=== PATIENT | female | born 1995 | race Two or more races ===

== ENCOUNTER 2016-10-14 11:54 | Emergency (ER) | payer BC, OTHER ==
[~2016-10-14] VITALS: Ht 157.5 cm; Wt 47.6 kg
[2016-10-14 12:24] LABS: KETONES,URINE Negative (NEGATIVE); LEUKOCYTE ESTERASE ,URINE Negative (NEGATIVE); PH,URINE 5.5 (5.0-8.0)
[2016-10-14 12:26] LABS: ADD UA MICROSCOPIC YES
[2016-10-14 12:27] LABS: PREGNANCY TEST URINE QUAL NEGATIVE (NEGATIVE)
[2016-10-14 12:29] LABS: BASOPHILS # (AUTO) 0.1 /CMM (0.0-0.2); BASOPHILS % (AUTO) 0.8 % (0.0-2.0); DIFF TOTAL % 100 %; EOSINOPHILS % (AUTO) 0.4 % (0.0-6.0); HEMATOCRIT 37 % (33-45); HEMOGLOBIN 12.4 g/dL (11.5-14.8); LYMPHOCYTES # (AUTO) 1.5 /CMM (0.8-4.8); LYMPHOCYTES % (AUTO) 19.8 % (20.0-44.0); MEAN CORPUSCULAR HEMOGLOBIN 28 PG (26.0-33.0); MEAN CORPUSCULAR HGB CONC 33 g/dl (31.0-36.0); MEAN CORPUSCULAR VOLUME 85 fL (82-100); MONOCYTES # (AUTO) 0.4 /CMM (0.1-1.30); MONOCYTES % (AUTO) 5.2 % (2.0-12.0); NEUTROPHILS # (AUTO) 5.3 /CMM (1.8-8.9); NEUTROPHILS % (AUTO) 73.8 % (43.0-81.0); PLATELET COUNT (AUTO) 294 /CMM (150-450); RED BLOOD CELL COUNT(AUTO) 4.37 MIL/uL (4.0-5.2); WHITE BLOOD COUNT (AUTO) 7.3 K/uL (4.3-11.0)
[2016-10-14 12:49] LABS: CALCIUM, SERUM 8.8 mg/dL (8.5-10.1); CREATININE 0.7 mg/dL (0.6-1.3); POTASSIUM 3.7 mmol/L (3.5-5.1)
[2016-10-14 12:55] LABS: ADD URINE CULTURE NO; WBC,URINE 0-2 /HPF (0-3)
[2016-10-14 13:15] VITALS: BP 114/68
== END 2016-10-14 13:16 | disposition home or self-care (01) ==
LOC: ER 11:55
DX: N93.8 Other specified abnormal uterine and vaginal bleeding (principal)
CPT/HCPCS: 36415; 80048; 81001; 84702; 84703; 85025; 87491; 87591; 99284; A4606; Z7610; 81000-TC

== ENCOUNTER 2017-04-10 14:05 | Outpatient (CLI) | payer BC, OTHER ==
[2017-04-10 16:54] LABS: BASOPHILS % (AUTO) 0.4 % (0.0-2.0); EOSINOPHILS % (AUTO) 0.3 % (0.0-6.0); HEMATOCRIT 38 % (33-45); HEMOGLOBIN 12.3 g/dL (11.5-14.8); LYMPHOCYTES # (AUTO) 1.7 /CMM (0.8-4.8); LYMPHOCYTES % (AUTO) 23.5 % (20.0-44.0); MEAN CORPUSCULAR HEMOGLOBIN 27 PG (26.0-33.0); MEAN CORPUSCULAR HGB CONC 33 g/dl (31.0-36.0); MEAN CORPUSCULAR VOLUME 82 fL (82-100); MONOCYTES # (AUTO) 0.5 /CMM (0.1-1.30); MONOCYTES % (AUTO) 6.3 % (2.0-12.0); NEUTROPHILS # (AUTO) 5.1 /CMM (1.8-8.9); NEUTROPHILS % (AUTO) 69.5 % (43.0-81.0); PLATELET COUNT (AUTO) 265 /CMM (150-450); RDW COEFFICIENT OF VARIATION 16.3 (11.5-15.0); RED BLOOD CELL COUNT(AUTO) 4.61 MIL/uL (4.0-5.2); WHITE BLOOD COUNT (AUTO) 7.3 K/uL (4.3-11.0)
[2017-04-10 17:24] LABS: ALBUMIN 4.1 g/dL (3.4-5.0); BILIRUBIN,TOTAL 0.7 mg/dL (0.2-1.0); CALCIUM, SERUM 9.1 mg/dL (8.5-10.1); CREATININE 0.6 mg/dL (0.6-1.3); TOTAL PROTEIN, SERUM 7.8 g/dL (6.4-8.2)
[2017-04-10 23:38] LABS: T4 (THYROXINE) 8.2 ug/dL (4.7-13.3); THYROID STIMULATING HORMONE 0.763 uIU/mL (0.358-3.74)
== END 2017-04-10 23:59 | disposition home or self-care (01) ==
LOC: LAB 14:05
PROVIDERS: ATTEND Family Medicine
DX: Z12.4 Encounter for screening for malignant neoplasm of cervix (principal); Z11.3 Encounter for screening for infections with a predominantly sexual mode of transmission; N92.6 Irregular menstruation, unspecified
CPT/HCPCS: 80053-TC; 84146; 84436-TC; 84443-TC; 85025-TC; 86592; 86803; 87210-TC; 87491; 88142

== ENCOUNTER 2017-05-21 09:16 | Outpatient (CLI) | payer BC, OTHER ==
[2017-05-21] MEDS ORDERED: GADOVERSETAMIDE 5 MMOL/10 ML VIAL ONE (15:00)
== END 2017-05-21 23:59 | disposition home or self-care (01) ==
LOC: MRI 09:16
PROVIDERS: ATTEND Family Medicine
DX: I67.82 Cerebral ischemia (principal); R90.82 White matter disease, unspecified; R94.7 Abnormal results of other endocrine function studies
CPT/HCPCS: 70553; A9579

== ENCOUNTER 2017-06-06 10:51 | Outpatient (CLI) | payer BC, OTHER ==
[2017-06-06] MEDS ORDERED: GADOVERSETAMIDE 2.5 MMOL/5 ML VIAL IJ ONE (10:52)
== END 2017-06-06 23:59 | disposition home or self-care (01) ==
LOC: MRI 10:51
PROVIDERS: ATTEND Family Medicine
DX: R94.7 Abnormal results of other endocrine function studies (principal)
CPT/HCPCS: 70553; A9579

== ENCOUNTER 2018-04-27 22:32 | Emergency (ER) | payer BC ==
[~2018-04-27] VITALS: Ht 160 cm; Wt 47.6 kg
--- NOTE | 2018-04-27 23:20 | NUR ---
pt bibself from home. pt c/o nausea. per pt's statement, felt like fainting at work and arms are feeling numb. denies v/d. pt being seen by md at bedside.
[2018-04-27] MEDS ORDERED: ONDANSETRON 4 MG TAB.RAPDIS PO ONE (23:30)
[2018-04-27] MEDS ORDERED: ONDANSETRON 4 MG TAB.RAPDIS ONE (23:38)
--- NOTE | 2018-04-27 23:56 | NUR ---
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
[2018-04-28 00:07] LABS: BILIRUBIN,URINE NEGATIVE (NEGATIVE); BLOOD, URINE TRACE-INTA Ery/uL (NEGATIVE); COLOR,URINE YELLOW (YELLOW); KETONES,URINE 1+ (NEGATIVE); LEUKOCYTE ESTERASE ,URINE NEGATIVE (NEGATIVE); NITRITE, URINE NEGATIVE (NEGATIVE); PROTEIN,URINE NEGATIVE (NEGATIVE); UGLUCOSE NEGATIVE (NEGATIVE); UROBILINOGEN,URINE 0.2 EU/dL (0.2)
[2018-04-28 00:18] LABS: APPEARANCE,URINE SH508463 (CLEAR)
[2018-04-28 00:25] LABS: BACTERIA,URINE Few /HPF (None Seen); MUCUS,URINE Many /LPF (None Seen); RBC,URINE 0-2 /HPF (0-2); SQUAMOUS EPITHELIAL CELL,UR Moderate /HPF (None Seen)
--- NOTE | 2018-04-28 00:36 | NUR ---
Patient discharged to home in stable condition. Written and verbal after care instructions given. Patient verbalizes understanding of instruction. pt left walking with steady gait. taken home by family.
[2018-04-28 00:37] VITALS: BP 116/58
== END 2018-04-28 00:38 | disposition home or self-care (01) ==
LOC: ER 22:32
DX: R11.0 Nausea (principal); R06.4 Hyperventilation
CPT/HCPCS: 81001; 84703; 87086; 99284; A4606; Q0162; Z7610 ×2; 81000-TC

== ENCOUNTER 2018-05-23 02:10 | Emergency (ER) | payer BC ==
[~2018-05-23] VITALS: Ht 160 cm; Wt 51.7 kg
[2018-05-23 02:16] VITALS: BP 130/72
[2018-05-23] MEDS ORDERED: IBUPROFEN 600 MG TABLET PO ONE ×2 (03:00→03:12)
== END 2018-05-23 03:18 | disposition home or self-care (01) ==
LOC: ER 02:13
DX: Z04.1 Encounter for examination and observation following transport accident (principal)
CPT/HCPCS: 72040; 99284; A4606; Z7610

== ENCOUNTER 2018-06-03 13:06 | Outpatient (CLI) | payer BC ==
[2018-06-03 14:21] LABS: BASOPHILS % (AUTO) 0.6 % (0.0-2.0); EOSINOPHILS % (AUTO) 0.1 % (0.0-6.0); HEMATOCRIT 37 % (33-45); HEMOGLOBIN 12.5 g/dL (11.5-14.8); LYMPHOCYTES # (AUTO) 1.4 /CMM (0.8-4.8); LYMPHOCYTES % (AUTO) 23.3 % (20.0-44.0); MEAN CORPUSCULAR HEMOGLOBIN 31 PG (26.0-33.0); MEAN CORPUSCULAR HGB CONC 34 g/dl (31.0-36.0); MEAN CORPUSCULAR VOLUME 91 fL (82-100); MONOCYTES # (AUTO) 0.4 /CMM (0.1-1.30); MONOCYTES % (AUTO) 6.4 % (2.0-12.0); NEUTROPHILS # (AUTO) 4.1 /CMM (1.8-8.9); NEUTROPHILS % (AUTO) 69.6 % (43.0-81.0); PLATELET COUNT (AUTO) 207 /CMM (150-450); RDW COEFFICIENT OF VARIATION 12.8 (11.5-15.0); RED BLOOD CELL COUNT(AUTO) 4.09 MIL/uL (4.0-5.2); WHITE BLOOD COUNT (AUTO) 5.8 K/uL (4.3-11.0)
[2018-06-03 14:32] LABS: APPEARANCE,URINE SL CLOUDY (CLEAR); BILIRUBIN,URINE NEGATIVE (NEGATIVE); BLOOD, URINE NEGATIVE Ery/uL (NEGATIVE); COLOR,URINE DARK YELLO (YELLOW); KETONES,URINE NEGATIVE (NEGATIVE); LEUKOCYTE ESTERASE ,URINE NEGATIVE (NEGATIVE); NITRITE, URINE NEGATIVE (NEGATIVE); PH,URINE 5.5 (5.0-8.0); PROTEIN,URINE 1+ mg/dl (NEGATIVE); UGLUCOSE NEGATIVE (NEGATIVE); UROBILINOGEN,URINE 0.2 EU/dL (0.2)
[2018-06-03 14:43] LABS: BACTERIA,URINE Moderate /HPF (None Seen); RBC,URINE 0-2 /HPF (0-2); SQUAMOUS EPITHELIAL CELL,UR Moderate /HPF (None Seen); WBC,URINE 0-3 /HPF (0-3)
[2018-06-03 15:15] LABS: ALBUMIN 3.7 g/dL (3.4-5.0); BILIRUBIN,TOTAL 0.5 mg/dL (0.2-1.0); CALCIUM, SERUM 8.5 mg/dL (8.5-10.1); CREATININE 0.6 mg/dL (0.6-1.3); POTASSIUM 4.1 mmol/L (3.5-5.1); TOTAL PROTEIN, SERUM 7.1 g/dL (6.4-8.2)
[2018-06-03 15:27] LABS: FREE T4 (FREE THYROXINE) 0.98 ng/dL (0.76-1.46); THYROID STIMULATING HORMONE 0.877 uIU/mL (0.358-3.74)
== END 2018-06-03 23:59 | disposition home or self-care (01) ==
LOC: LAB 13:06
PROVIDERS: ATTEND Family Medicine
DX: Z00.01 Encounter for general adult medical examination with abnormal findings (principal); E55.9 Vitamin D deficiency, unspecified
CPT/HCPCS: 36415; 80053-TC; 80061-TC; 81000-TC; 82306; 84439-TC; 84443-TC; 85025-TC; 87086-TC

== ENCOUNTER 2019-01-06 01:11 | Emergency (ER) | payer BC ==
[~2019-01-06] VITALS: Ht 157.5 cm; Wt 48.1 kg
--- NOTE | 2019-01-06 02:11 | NUR ---
URINE COLLECTED AND SENT TO LAB
--- NOTE | 2019-01-06 02:30 | NUR ---
PT PRESENTED TO THE ER WITH A C/O ABD PAIN X 1 DAY WITH N/V/D, HEAMATURIA AND DYSURIA. URINE SAMPLE WAS OBTAINED BY TRIAGE. PT AMBULATED TO ER #3 WITH A STEADY GAIT. PT STATED THAT SHE FEELS WEAK. PT IS REQUESTING IVF.
[2019-01-06 02:42] LABS: APPEARANCE,URINE CLEAR (CLEAR); BILIRUBIN,URINE NEGATIVE (NEGATIVE); BLOOD, URINE 3+ Ery/uL (NEGATIVE); COLOR,URINE YELLOW (YELLOW); KETONES,URINE 3+ (NEGATIVE); LEUKOCYTE ESTERASE ,URINE NEGATIVE (NEGATIVE); NITRITE, URINE NEGATIVE (NEGATIVE); PH,URINE 5.5 (5.0-8.0); PROTEIN,URINE TRACE mg/dl (NEGATIVE); UGLUCOSE NEGATIVE (NEGATIVE); UROBILINOGEN,URINE 0.2 EU/dL (0.2)
[2019-01-06 02:57] LABS: BACTERIA,URINE Few /HPF (None Seen); MUCUS,URINE Few /LPF (None Seen); RBC,URINE 21-50 /HPF (0-2); SQUAMOUS EPITHELIAL CELL,UR Few /HPF (None Seen)
[2019-01-06] MEDS ORDERED: IV NS 0.9% 1,000 ML BAG IV ONE (03:30)
[2019-01-06] MEDS ORDERED: ONDANSETRON HCL/PF - ER 4 MG/2 ML VIAL IV ONE (03:30)
[2019-01-06] MEDS ORDERED: FAMOTIDINE/PF INJ 20 MG/2 ML VIAL IV ONE ×2 (03:30→03:31)
[2019-01-06] MEDS ORDERED: ONDANSETRON HCL/PF 4 MG/2 ML VIAL ONE (03:31)
[2019-01-06 03:52] LABS: BASOPHILS % (AUTO) 0.1 % (0.0-2.0); HEMATOCRIT 39 % (33-45); HEMOGLOBIN 13.1 g/dL (11.5-14.8); LYMPHOCYTES # (AUTO) 0.3 /CMM (0.8-4.8); LYMPHOCYTES % (AUTO) 2.2 % (20.0-44.0); MEAN CORPUSCULAR HGB CONC 34 g/dl (31.0-36.0); MEAN CORPUSCULAR VOLUME 90 fL (82-100); MONOCYTES # (AUTO) 0.3 /CMM (0.1-1.30); MONOCYTES % (AUTO) 2.3 % (2.0-12.0); NEUTROPHILS # (AUTO) 12.5 /CMM (1.8-8.9); NEUTROPHILS % (AUTO) 95.4 % (43.0-81.0); PLATELET COUNT (AUTO) 300 /CMM (150-450); RED BLOOD CELL COUNT(AUTO) 4.35 MIL/uL (4.0-5.2); WHITE BLOOD COUNT (AUTO) 13.1 K/uL (4.3-11.0)
[2019-01-06 03:54] LABS: CALCIUM, SERUM 8.9 mg/dL (8.5-10.1); CREATININE 0.7 mg/dL (0.6-1.3); POTASSIUM 3.5 mmol/L (3.5-5.1)
[2019-01-06 04:00] LABS: ALBUMIN 4.3 g/dL (3.4-5.0); BILIRUBIN,DIRECT 0.1 mg/dL (0.0-0.2); BILIRUBIN,TOTAL 0.6 mg/dL (0.2-1.0); TOTAL PROTEIN, SERUM 7.8 g/dL (6.4-8.2)
--- NOTE | 2019-01-06 04:35 | NUR ---
IV removed. Catheter intact and site benign. Pressure and 4x4 applied to site. No bleeding noted.
[2019-01-06 04:39] VITALS: BP 109/64
--- NOTE | 2019-01-06 04:40 | NUR ---
Patient discharged to home in stable condition. Written and verbal after care instructions given. Patient verbalizes understanding of instruction AND RX. PT AMBULATED OUT WITH A STEADY GAIT. VSS. PT IS TAKING AN UBER HOME.
--- NOTE | 2019-02-11 05:04 | NUR ---
01/06/2019 ER Visit Chief Complaint: Nausea, vomiting, diarrhea, also dysuria and hematuria HPI: 23 year old female patient without significant pmh reported nausea and nonbilious vomiting and watery diarrhea since 1 day prior to ER visit. Patient denied associated abdominal pain, including lower abdominal pain. Patient reported symptoms may have been triggered by food she ate immediately prior to onset of symptoms. Patient denied being . Patient denied travel or recent antibiotics. Patient denied taking medications prior to coming to ER. Review of Systems: Patient reported fever. Denied visual changes. Denied sore throat. Denied palpitations or chest pain. Denied sweating or rash. Denied cough. Reported nausea/vomiting/diarrhea. Denied focal numbness or weakness. Denied bleeding. Denied elev blood sugar. Reported dysuria and hematuria. Denied being . Denied depressed thoughts. All other systems were reviewed and are negative except as documented. PMH:denied signif pmh Past Family History:reviewed and not relevant Social History:denied smoking, drinking or using drugs Physical exam: Vital signs: Temp 100.4, Pulse 114, RR 16, o2 sat 100%, wt 48 kg General: Non septic appearing, no acute distress Head: Non icteric sclera, extraocular movements intact Neck: Midline trachea, no JVD, supple neck Cardiac: S1S2 Respiratory: Bilateral breath sounds without wheezes or crackles. Gastrointestinal: Nondistended. +Bowel Sounds. No focal tenderness or guarding to deep palpation. No tenderness at right lower quadrant McBurney's point. No flank CVA tenderness. Musculoskeletal: minimal discofort to palpation at left flank. No midline spinal tenderness. Extremities: No calf swelling or tenderness. No bony deformities Psychiatric: Alert Neurological: Grossly non-focal Integumentary/ Skin: No rash mdm DDx Acute nausea, vomiting and diarrhea with abdominal pain and without fever or lower abdominal pain. DDx included food poisoning, enteritis, less likely colitis or diverticulitis or appendicitis. Assessment: Acute nausea, vomiting and diarrhea with abdominal pain and without fever or lower abdominal pain. Patient's presentation was much more consistent with food poisoning and enteritis and much less consistent with colitis or diverticulitis or appendicitis. Patient had no flank pain or tenderness and did not appear to likely have an obtructing kidney stone. ED orders included IV, IV pepcid, zofran and 1L NS. Patient had resolved symptoms after medication treatment in the ER. ED orders included labwork- there was no elevation in ED ordered lipase to indicate acute pancreatitis and no elevation in LFT's to indicate gallbladder or liver disease. Plan: I gave oral PO challenge and greater than 20 minutes after PO challenge, there was no nausea or or vomiting or abdominal pain. ED orders included prescription for pepcid PO course. Also followup to gastroenerologist for persistent/ increased symptoms, especially lasting 1-2 weeks. Gave strict return precautions for abdominal pain. Final diagnoses: 1) Nausea and vomiting (resolved) 2) Diarrhea 3) Abdominal Pain of Uncertain Etiology
== END 2019-01-06 04:40 | disposition home or self-care (01) ==
LOC: ER 01:14
DX: R19.7 Diarrhea, unspecified (principal); R10.12 Left upper quadrant pain; R10.32 Left lower quadrant pain
CPT/HCPCS: 36415; 80048; 80076; 81001; 83690; 84703; 85025; 85730; 96361; 96374; 96375; 99283; J2405 ×2; J3490; J7030 ×2; 81000-TC

== ENCOUNTER 2020-12-05 11:52 | Outpatient (CLI) | payer BC ==
[2020-12-05 12:55] LABS: BASOPHILS % (AUTO) 0.6 % (0.0-2.0); EOSINOPHILS % (AUTO) 0.3 % (0.0-6.0); HEMATOCRIT 40 % (33-45); HEMOGLOBIN 13.2 g/dL (11.5-14.8); LYMPHOCYTES # (AUTO) 1.5 /CMM (0.8-4.8); LYMPHOCYTES % (AUTO) 28.2 % (20.0-44.0); MEAN CORPUSCULAR HGB CONC 33 g/dl (31.0-36.0); MEAN CORPUSCULAR VOLUME 90 fL (82-100); MONOCYTES # (AUTO) 0.4 /CMM (0.1-1.30); MONOCYTES % (AUTO) 6.9 % (2.0-12.0); NEUTROPHILS # (AUTO) 3.4 /CMM (1.8-8.9); PLATELET COUNT (AUTO) 220 /CMM (150-450); RED BLOOD CELL COUNT(AUTO) 4.41 MIL/uL (4.0-5.2); WHITE BLOOD COUNT (AUTO) 5.3 K/uL (4.3-11.0)
[2020-12-05 13:18] LABS: BILIRUBIN,URINE NEGATIVE (NEGATIVE); COLOR,URINE YELLOW (YELLOW); LEUKOCYTE ESTERASE ,URINE NEGATIVE (NEGATIVE); NITRITE, URINE NEGATIVE (NEGATIVE); PROTEIN,URINE NEGATIVE (NEGATIVE); UGLUCOSE NEGATIVE (NEGATIVE); UROBILINOGEN,URINE 0.2 EU/dL (0.2)
[2020-12-05 14:27] LABS: BILIRUBIN,TOTAL 0.7 mg/dL (0.2-1.0); CALCIUM, SERUM 8.9 mg/dL (8.5-10.1); CREATININE 0.6 mg/dL (0.6-1.3); POTASSIUM 3.8 mmol/L (3.5-5.1); TOTAL PROTEIN, SERUM 7.3 g/dL (6.4-8.2)
[2020-12-05 14:39] LABS: FREE T4 (FREE THYROXINE) 0.93 ng/dL (0.76-1.46); THYROID STIMULATING HORMONE 1.239 uIU/mL (0.358-3.74)
== END 2020-12-05 23:59 | disposition home or self-care (01) ==
LOC: LAB 11:52
PROVIDERS: ATTEND Family Medicine
DX: R89.1 Abnormal level of hormones in specimens from other organs, systems and tissues (principal); Z00.01 Encounter for general adult medical examination with abnormal findings
CPT/HCPCS: 36415; 80053-TC; 80061-TC; 82306; 84439-TC; 84443-TC; 85025-TC

== ENCOUNTER 2021-07-04 14:34 | Outpatient (CLI) | payer BC ==
[2021-07-04 15:27] LABS: BASOPHILS % (AUTO) 0.7 % (0.0-2.0); EOSINOPHILS % (AUTO) 0.5 % (0.0-6.0); HEMATOCRIT 41 % (33-45); HEMOGLOBIN 13.3 g/dL (11.5-14.8); LYMPHOCYTES # (AUTO) 1.7 K/uL (0.8-4.8); LYMPHOCYTES % (AUTO) 27.3 % (20.0-44.0); MEAN CORPUSCULAR HGB CONC 33 g/dl (31.0-36.0); MEAN CORPUSCULAR VOLUME 93 fL (82-100); MONOCYTES # (AUTO) 0.4 K/uL (0.1-1.30); MONOCYTES % (AUTO) 6.4 % (2.0-12.0); NEUTROPHILS # (AUTO) 4.1 K/uL (1.8-8.9); NEUTROPHILS % (AUTO) 65.1 % (43.0-81.0); PLATELET COUNT (AUTO) 241 K/uL (150-450); RED BLOOD CELL COUNT(AUTO) 4.36 MIL/uL (4.0-5.2); WHITE BLOOD COUNT (AUTO) 6.3 K/uL (4.3-11.0)
[2021-07-04 15:48] LABS: ALBUMIN 4.1 g/dL (3.4-5.0); BILIRUBIN,TOTAL 0.3 mg/dL (0.2-1.0); CALCIUM, SERUM 8.7 mg/dL (8.5-10.1); CREATININE 0.7 mg/dL (0.6-1.3); POTASSIUM 4.2 mmol/L (3.5-5.1); TOTAL PROTEIN, SERUM 7.5 g/dL (6.4-8.2)
[2021-07-04 15:52] LABS: THYROID STIMULATING HORMONE 0.728 uIU/mL (0.358-3.74)
[2021-07-05 05:07] LABS: PROLACTIN 13.1 ng/mL (4.8-23.3)
== END 2021-07-04 23:59 | disposition home or self-care (01) ==
LOC: RAD 14:34
PROVIDERS: ATTEND Family Medicine
DX: N92.6 Irregular menstruation, unspecified (principal); R89.1 Abnormal level of hormones in specimens from other organs, systems and tissues; M40.294 Other kyphosis, thoracic region; M40.56 Lordosis, unspecified, lumbar region
CPT/HCPCS: 36415; 72080-TC; 80053-TC; 80061-TC; 82306; 84146; 84439-TC; 84443-TC; 85025-TC

== ENCOUNTER 2021-07-12 09:10 | Outpatient (CLI) | payer BC ==
[2021-07-12] MEDS ORDERED: GADOTERATE MEGLUMINE 5 MMOL/10 ML VIAL IV ONE (09:11)
== END 2021-07-12 23:59 | disposition home or self-care (01) ==
LOC: US 09:10
PROVIDERS: ATTEND Family Medicine
DX: I67.82 Cerebral ischemia (principal); N92.6 Irregular menstruation, unspecified; N85.4 Malposition of uterus
CPT/HCPCS: 70553; 76856; A9575